=== PATIENT | male | born 1965 | race Hispanic/Latino ===

== ENCOUNTER 2025-03-20 06:18 | Day surgery (SDC) | payer OTHER ==
[2025-03-20] VITALS (10 sets, daily range): BP systolic 106–126; BP diastolic 62–81; PULSE 69–78; RESP 16–18; TEMP 97.7–98.1
[~2025-03-20] VITALS: Ht 165.1 cm; Wt 93.4 kg
[~2025-03-20 06:18] MED LIST: ATOR40TA69 PO; LISI2.5T13 PO; METF-444 PO
[2025-03-20] MEDS: 0.9%NACL 1000ML 1,000 ML IV ONE (06:52)
[2025-03-20] MEDS ORDERED: proPOFol 10 MG/ML 20ML VIAL IV ONE (07:53)
--- NOTE | 2025-03-20 09:18 | NUR ---
Full and complete discharge instructions given to Patient and Family both verbally and in writing. Explained GI procedure precautions and follow up. All questions answered. PIV removed with catheter tip intact. Home with Family W/C to POV.
== END 2025-03-20 09:20 | disposition home or self-care (01) ==
LOC: ENDO 06:18 → DAH 06:18 → ENDO 09:20
PROVIDERS: ATTEND Internal Medicine Gastroenterology
DX: R93.3 Abnormal findings on diagnostic imaging of other parts of digestive tract (principal); K82.8 Other specified diseases of gallbladder; K31.89 Other diseases of stomach and duodenum; K31.A11 Gastric intestinal metaplasia without dysplasia, involving the antrum; K29.50 Unspecified chronic gastritis without bleeding; K64.1 Second degree hemorrhoids; K31.7 Polyp of stomach and duodenum; D12.6 Benign neoplasm of colon, unspecified; D49.0 Neoplasm of unspecified behavior of digestive system; I10 Essential (primary) hypertension; G47.33 Obstructive sleep apnea (adult) (pediatric); E11.9 Type 2 diabetes mellitus without complications; R12 Heartburn; M81.0 Age-related osteoporosis without current pathological fracture; E78.5 Hyperlipidemia, unspecified; Z86.0100 Personal history of colon polyps, unspecified; Z79.899 Other long term (current) drug therapy; Z79.84 Long term (current) use of oral hypoglycemic drugs; Z98.890 Other specified postprocedural states
CPT/HCPCS: 43237; 82948 ×2; J7030; J2704; A4620; A4215; A4223; A4222; A4221; A4663; A4606; J3490

== ENCOUNTER → 2025-04-12 | Outpatient (CLI) | payer OTHER ==
--- NOTE | 2025-04-12 12:35 | HMCIMG ---
Exam Type: Complete abdominal ultrasound with hepatic color-flow Doppler Findings: The liver shows fatty infiltration and is enlarged, measuring 17 and is otherwise unremarkable. Doppler evaluation shows patent portal and hepatic veins. The gallbladder shows no significant abnormalities. Specifically, no calculi are seen. No bile duct dilatation is noted. The gallbladder wall measures 2 mm. The common bile duct measures 4 mm. The right kidney measures 11.9 x 5.3 cm. The left kidney measures 13 x 5.3 cm. The kidneys show no hydronephrosis or calculi, masses or other abnormalities. The pancreas is unremarkable. The spleen is unremarkable. The aorta and inferior vena cava show no significant abnormalities. IMPRESSION: FATTY LIVER INFILTRATION AND HEPATOMEGALY. OTHERWISE NORMAL ABDOMINAL ULTRASOUND.
--- NOTE | 2025-04-12 14:13 | HMCIMG ---
HIDA scan INDICATION: Abnormal Findings on Diagnostic. TECHNIQUE: Patient was administered 7 mCi of technetium 99m Choletec IV and dynamic images of the abdomen were obtained over 2 hours. Patient was then given 1.8 mcg of CCK IV for gallbladder ejection fraction calculation. FINDINGS: There is rapid and homogeneous uptake of radiopharmaceutical by the liver, which shows normal size and shape. Activity in the gallbladder noted 10 minutes after injection of tracer. Normal hepatic clearance with activity in the small bowel. Gallbladder ejection fraction calculated at 4% (normal is > 35%). IMPRESSION: Low ejection fraction consistent with gallbladder dyskinesia. No evidence of acute or chronic cholecystitis..
== END | disposition home or self-care (01) ==
LOC: RAH 10:00
PROVIDERS: ATTEND Internal Medicine Gastroenterology
DX: K76.0 Fatty (change of) liver, not elsewhere classified (principal); R93.3 Abnormal findings on diagnostic imaging of other parts of digestive tract
CPT/HCPCS: 78227; 76700; A9537